=== PATIENT | male | born 1940 | race Caucasian/White ===

== ENCOUNTER → 2018-12-27 | Outpatient (CLI) | payer OTHER ==
[~2018-12-27] VITALS: Ht 152.4 cm; Wt 81.2 kg
[~2018-12-27] MED LIST: ARICEPT 5 MG TAB5 MG PO; CENTRAVITES PO; LIPITOR40 MG PO; PREVAGEN PO; SYNTHROID75 MCG PO; VITAMIN B-12500 MCG PO; VITAMIN D1000 UNI1 PO
--- NOTE | 2018-12-28 16:06 | PATH ---
[facility] [address] [place] [address] PATHOLOGY RPT PROCEDURE Name: ADAIR VELASQUEZ Room #: REG [facility] M.R.#: [id number] ������������������ Admission: 12/27/18 ������������������ Date of : 36 Discharge: Report #: [id number] Path Case #: [id number] [facility] Accession Number: [id number] . 01 Material submitted: . colon - BX POLYP AT 35CM . 01 Clinical history: . Pre-OP DX: Hx polyps Post-OP DX: Colon polyp, diverticulosis, hemorrhoids . 02 Diagnosis: Polyp, at 35 cm, endoscopic biopsy: - Hyperplastic polyp. - Negative for dysplasia. (IUV:endodontic assistant; 12/28/2018) MBR/12/28/2018 . 02 Electronically signed: . Natacha Joseph MD, Pathologist NPI- [id number] . 01 Gross description: . Received in formalin labeled "Adair Velasquez, BX polyp at 35 cm," are 4 segments of lopez soft tissue measuring 1.1 x 0.9 x 0.2 cm in aggregate dimensions and ranging from 0.1 to 0.4 cm in maximum dimension. The specimen is submitted entirely in cassette A1. (TSD; 12/27/2018) TOB/TOB . 02 Pathologist provided ICD-10: K63.5 . 02 CPT . 945295 Specimen Comment: A courtesy copy of this report has been sent to Specimen Comment: [phone], . Specimen Comment: Report sent to / DR CASTRO Performed at: [address], [place] [id number] MD Toñito Tinsley MD Phone: [phone] Performed at: [address] [id number] MD Natacha Joseph MD Phone: [phone]
--- NOTE | 2018-12-28 16:34 | P ---
[facility] [place] [address] PROCEDURE REPORT Name: CHER NEWTON Nicko [id number] Admission: 12/27/18 ������������������ Attend Phys: Bernabe Benton MD Discharge: ������������������ Date of : 36 Report #: [id number] THIS REPORT FOR: //name// CC: Juaquin Bloom DO Dr. Jose Carlos Benton BRIEF HISTORY: The patient is an 78-year-old male with a history of colon cancer in 2013, status post right hemicolectomy for cecal cancer. PREOPERATIVE DIAGNOSIS: High risk screening colonoscopy. POSTOPERATIVE DIAGNOSES: 1. Colon polyp at 35 cm. 2. Moderate diverticulosis coli, right and left colon. 3. Moderate internal hemorrhoids. MEDICATIONS: Deep sedation with propofol per anesthesia. SPECIMEN: Polyp at 35 cm. ESTIMATED BLOOD LOSS: 3 mL. PROCEDURE: Colonoscopy to ileocolonic anastomosis and distal ileum with biopsy. FINDINGS: Prior to propofol sedation, procedure of colonoscopy discussed with the patient as well as potential risks and its complications. He indicates he understands and desires to proceed. DESCRIPTION OF PROCEDURE: With the patient in left lateral decubitus position, digital examination was completed, which revealed no abnormalities. Subsequently, the Olympus video colonoscope was introduced in the rectum, advanced under direct vision to the proximal colon. The ileocolonic anastomosis was identified and noted to be unremarkable. It was widely patent without evidence of stricturing. The distal terminal ileum was normal as well. At that point, the scope was slowly withdrawn and careful circumferential views were obtained. Upon slow withdrawal of the scope, the prep was excellent. Mucosa was within normal limits, normal vascular pattern, normal light reflex. The patient was noted to have diverticula scattered throughout the colon including the proximal colon down to the level close to the anastomosis. There was no endoscopic evidence of diverticulitis. Interestingly, he had disease throughout all segments of the colon with the exception of the sigmoid, which was relatively spared with regard to diverticular disease. In the sigmoid colon at 35 cm, a flat 4 x 4 mm polyp was seen and removed with biopsy forceps. Scope was further withdrawn no additional abnormalities are seen. Scope was withdrawn in the rectum. No abnormalities were seen. However, upon retroflexion, [facility] [address] [place] [address] PROCEDURE REPORT Name: CHER NEWTON Nicko Room #: REG [facility].#: [id number] Admission: 12/27/18 ������������������ Attend Phys: Bernabe Benton MD Discharge: ������������������ Date of : 36 Report #: [id number] moderate internal hemorrhoids were seen. The scope was withdrawn. The patient tolerated the procedure well. CONDITION OF THE PATIENT UPON DISCHARGE: Following procedure, the patient drowsy, arousable, and conversant and will be discharged home when fully ambulatory. INSTRUCTIONS TO THE PATIENT AND FAMILY AT THE TIME OF DISCHARGE: We will follow up the pathology of the polyp. Typically would have him return in 3 years due to his personal history of colon cancer. At that point in time, he will be 81 years old. If his health is good and as expected good longevity, it would be reasonable to pursue colonoscopy at that time. However, health is poor, he may have minimal benefit from repeating a colonoscopy. The patient also has had problems with constipation. He was given a prescription for Linzess in the past and he does not recall taking it. He does note the MiraLax in the past was helpful, but he is not taking at this time. We will have him resume the MiraLax on a daily basis as needed. If no better, she will return to see me in followup in the office. Last colonoscopy was about 3 years ago. Withdrawal time from cecum was 15 minutes 58 seconds. ��������������������������������������������� <ELECTRONICALLY SIGNED> ���������������������������������������� By: Bernabe Benton MD ��������������������������������������������� 12/28/18 [id number] [id number] Bernabe Benton MD /nt
== END | disposition home or self-care (01) ==
LOC: GI 06:42
DX: Z12.11 Encounter for screening for malignant neoplasm of colon (principal); Z85.038 Personal history of other malignant neoplasm of large intestine; Z86.010 Personal history of colon polyps; K63.5 Polyp of colon; K64.8 Other hemorrhoids; K57.30 Diverticulosis of large intestine without perforation or abscess without bleeding; G30.9 Alzheimer's disease, unspecified; F02.80 Dementia in other diseases classified elsewhere, unspecified severity, without behavioral disturbance, psychotic disturbance, mood disturbance, and anxiety; I25.2 Old myocardial infarction; E03.9 Hypothyroidism, unspecified; Z98.41 Cataract extraction status, right eye; Z95.1 Presence of aortocoronary bypass graft; Z98.0 Intestinal bypass and anastomosis status; Z98.42 Cataract extraction status, left eye; Z98.890 Other specified postprocedural states; Z79.899 Other long term (current) drug therapy
CPT/HCPCS: 62110; 62900